=== PATIENT | male | born 1945 | race Caucasian/White ===

== ENCOUNTER 2017-02-12 17:52 | Observation (INO) | payer MEDICARE, BC ==
[2017-02-12] MEDS: Nitroglycerin 0.4 MG Tab.SL SL PRN ×3 (18:05→18:17)
[2017-02-12] MEDS ORDERED: Aspirin 81 MG Tab.Chew PO ONE (18:07)
--- NOTE | 2017-02-12 18:36 | EDM.PDOC ---
ED HPI GENERAL MEDICAL PROBLEM - General Chief Complaint: Chest Pain Stated Complaint: CP Time Seen by Provider: 02/12/17 18:20 Source of Information: Reports: Patient History Limitations: Reports: No Limitations - History of Present Illness INITIAL COMMENTS - FREE TEXT/NARRATIVE: Patient presents with complaints of anterior chest pain. 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 Around 4 pm, the pain would not subside at all. Initially states the pain was around a 6-7, on arrival around a 4. He does feel like he couldn't get enough air in. No diaphoresis, no nausea. 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 Patient is compliant with his meds for the most part, takes a daily aspirin. Does have peripheral edema every evening "above his sock", stable without any increase in that as of late. On my arrival, after 3 nitro, pain is down to a 1. Onset: Today, Sudden Duration: Hour(s):, Constant Location: Reports: Chest Quality: Reports: Pressure, Sharp Severity: Moderate Improves with: Reports: None Worsens with: Reports: Movement Associated Symptoms: Reports: Chest Pain, Shortness of Breath. Denies: Cough, Diaphoresis, Fever/Chills, Headaches, Loss of Appetite, Nausea/Vomiting, Weakness Middle Chest Pain Score (Numeric/FACES): 1 - Related Data Allergies Allergy/AdvReac Type Severity Reaction Status Date / Time No Known Allergies Allergy Verified 02/12/17 18:38 Home Meds: Home Meds Aspirin [Adult Low Dose Aspirin EC] 81 mg PO DAILY 02/20/14 [History] Furosemide [Furosemide] 20 mg PO DAILY 02/20/14 [History] Losartan [Cozaar] 50 mg PO DAILY 02/20/14 [History] Metoprolol Tartrate [Lopressor] 50 mg PO BID 02/20/14 [History] Omeprazole [Omeprazole] 20 mg PO BID 02/20/14 [History] Potassium Chloride [Klor-Con M20] 40 meq PO DAILY 02/20/14 [History] amLODIPine Besylate [Amlodipine Besylate] 10 mg PO DAILY 02/20/14 [History] atorvaSTATin Calcium [Atorvastatin Calcium] 40 mg PO DAILY 02/20/14 [History] Acetaminophen [Tylenol Extra Strength] 500 mg PO Q6HR 04/08/15 [History] Biotin 1 mg PO DAILY 04/08/15 [History] Cholecalciferol (Vitamin D3) [Vitamin D3] 5,000 unit PO DAILY 04/08/15 [History] Testosterone Cypionate [Depo-Testosterone] 200 mg IM WEEKLY 04/08/15 [History] Past Medical History Cardiovascular History: Reports: High Cholesterol, Hypertension, CT, Stents Gastrointestinal History: Reports: GERD Social & Family History - Tobacco Use Smoking Status *Q: Never Smoker ED ROS GENERAL - Review of Systems Review Of Systems: See Below Constitutional: Denies: Fever, Chills, Malaise, Weakness, Decreased Appetite HEENT: Denies: Ear Pain, Rhinitis, Sinus Problem, Throat Pain Respiratory: Reports: Shortness of Breath. Denies: Cough Cardiovascular: Reports: Chest Pain, Edema. Denies: Lightheadedness Endocrine: Denies: Fatigue GI/Abdominal: Denies: Abdominal Pain, Constipation, Diarrhea, Nausea, Vomiting : Reports: No Symptoms Musculoskeletal: Reports: No Symptoms Skin: Reports: No Symptoms Neurological: Reports: No Symptoms Psychiatric: Reports: No Symptoms ED EXAM, GENERAL - Physical Exam Exam: See Below Exam Limited By: No Limitations General Appearance: Alert, WD/WN, No Apparent Distress Ears: Normal External Exam, Normal TMs Nose: Normal Inspection, Normal Mucosa Throat/Mouth: Normal Inspection, Normal Oropharynx Head: Normocephalic Neck: Normal Inspection, Supple, Non-Tender Respiratory/Chest: No Respiratory Distress, Lungs Clear, Normal Breath Sounds Cardiovascular: Regular Rate, Rhythm, Bradycardia GI/Abdominal: Normal Bowel Sounds, Soft, Non-Tender Extremities: Pedal Edema (2+ to RLE, 1+ LLE, pitting) Neurological: Alert, Oriented Skin Exam: Warm, Dry Course - Vital Signs Last Recorded V/S: Last Vital Signs Temp 97.7 F 02/12/17 18:17 Pulse 60 02/12/17 18:45 Resp 20 02/12/17 18:20 BP 163/84 H 02/12/17 18:45 Pulse Ox 99 02/12/17 18:20 - Orders/Labs/Meds Orders: Active Orders 24 hr Category Date Time Status Chest 2V [CR] Stat Exams 02/12/17 18:06 Ordered Labs: Laboratory Tests 02/12/17 02/12/17 02/12/17 Range/Units 18:07 18:07 18:15 WBC 7.6 (5.0-10.0) 10^3/uL RBC 5.05 (4.50-6.00) 10^6/uL Hgb 14.7 (14.0-18.0) g/dL Hct 43.7 (40.0-54.0) % MCV 86.5 (82.0-94.0) fL MCH 29.1 (27.0-32.0) pg MCHC 33.6 (33.0-38.0) g/dL RDW Coeff of Jose 13.9 (11.0-15.0) % Plt Count 178 (150-400) 10^3/uL Neut % (Auto) 76.0 (35-85) % Lymph % (Auto) 14.6 (10-55) % [place] % (Auto) 8.0 (0-16) % Eos % (Auto) 1.1 (0-5) % Baso % (Auto) 0.3 (0-3) % Neut # (Auto) 5.78 (1.80-7.00) 10^3/uL Lymph # (Auto) 1.11 (1.00-4.80) 10^3/uL [place] # (Auto) 0.61 (0.00-0.80) 10^3/uL Eos # (Auto) 0.08 (0.00-0.45) 10^3/uL Baso # (Auto) 0.02 10^3/uL PT 12.0 (9.7-12.3) SEC INR 1.11 (0.92-1.18) D-Dimer, Quantitative 0.24 (0.00-0.50) Sodium 143 (136-145) mEq/L Potassium 3.1 L (3.5-5.0) mEq/L Chloride 106 (98-106) mEq/L Carbon Dioxide 28 (21-32) mmol/L BUN 13 (7-18) mg/dL Creatinine 1.2 (0.7-1.3) mg/dL Est Cr Clr Drug Dosing TNP Estimated GFR (MDRD) 60 (>=60) mL/min Glucose 118 H (75-99) mg/dL Calcium 8.8 (8.4-10.1) mg/dL Total Bilirubin 0.8 (0.0-1.0) mg/dL AST 20 (15-37) U/L ALT 42 (12-78) U/L Alkaline Phosphatase 72 (46-116) U/L Lactate Dehydrogenase 152 (100-190) U/L Creatine Kinase 167 (35-232) U/L Troponin I < 0.017 (0.00-0.06) ng/mL NT-Pro-B Natriuret Pep 194 (0-1000) pg/mL Total Protein 7.0 (6.4-8.2) g/dL Albumin 3.7 (3.4-5.0) g/dL Meds: Medications Discontinued Medications Generic Name Dose Route Start Last Admin Trade Name Freq PRN Reason Stop Dose Admin Aspirin 324 mg 02/12/17 18:07 02/12/17 18:05 Aspirin PO 02/12/17 18:08 324 mg ONETIME ONE Administration Nitroglycerin 0.4 mg 02/12/17 18:07 02/12/17 18:17 Nitrostat SL 0.4 mg Q5M PRN Administration Chest Pain - Re-Assessments/Exams Free Text/Narrative Re-Assessment/Exam: 02/12/17 19:06 EKG, enzymes normal. Departure - Departure Time of Disposition: 19:07 Disposition: Refer to Observation Condition: Undetermined Clinical Impression: Angina at rest Forms: ED Department Discharge - Problem List & Annotations (1) Angina at rest SNOMED Code(s): 05713476 Code(s): I20.8 - OTHER FORMS OF ANGINA PECTORIS Status: Acute Priority: High Current Visit: Yes - Problem List Review Problem List Initiated/Reviewed/Updated: Yes - My Orders Last 24 Hours: My Active Orders 02/12/17 18:06 Chest 2V [CR] Stat - Assessment/Plan Admission H&P: Please use this note as an admission H&P Last 24 Hours: My Active Orders 02/12/17 18:06 Chest 2V [CR] Stat Assessment:: Unstable angina Plan: Admit observation to Dr. Arguelles for chest at rest
[2017-02-12 18:39] LABS: CHLORIDE,CL 106 mEq/L (98-106); SODIUM,NA 143 mEq/L (136-145)
[2017-02-12] MEDS ORDERED: Testosterone Cypionate 200 MG/ML MDV IM SCH (19:30)
[2017-02-12] MEDS ORDERED: Acetaminophen 325 MG Tab PO PRN (19:41)
[2017-02-12] MEDS ORDERED: Temazepam 15 MG Cap PO PRN (19:41)
[2017-02-12] MEDS ORDERED: Ondansetron 4 MG/2 ML SDV IV PRN (19:41)
[2017-02-12] MEDS ORDERED: Sodium Chloride 0.9% 10 ML Syringe FLUSH PRN (19:41)
[2017-02-12] MEDS ORDERED: Acetaminophen 500 MG Tab PO SCH (20:00)
[2017-02-12] MEDS ORDERED: METOPROLOL TARTRATE 50 MG PO SCH (20:00)
[2017-02-12] MEDS ORDERED: Non-Formulary Medication 1 Each (Omeprazole [Omeprazole] 20 MG) PO SCH (20:00)
[2017-02-12] MEDS ORDERED: Enoxaparin 40 MG/0.4 ML Syringe SUBCUT SCH (20:00)
[2017-02-12] MEDS ORDERED: Enoxaparin 60 MG/0.6 ML Syringe SUBCUT SCH (22:45)
[2017-02-12] MEDS ORDERED: Enoxaparin 60 MG/0.6 ML Syringe SUBCUT ONE (22:47)
[2017-02-12] MEDS ORDERED: Enoxaparin 60 MG/0.6 ML Syringe ONE (23:10)
[2017-02-13 07:55] VITALS: BP 157/82
[2017-02-13] MEDS ORDERED: amLODIPine 10 MG Tab PO SCH (08:00)
[2017-02-13] MEDS ORDERED: Aspirin 81 MG Tab.EC PO SCH (08:00)
[2017-02-13] MEDS ORDERED: Non-Formulary Medication 1 Each (Atorvastatin Calcium [Atorvastatin Calcium] 40 MG) PO SCH (08:00)
[2017-02-13] MEDS ORDERED: Non-Formulary Medication 1 Each (Cholecalciferol (Vitamin D3) [Vitamin D3] 5,000 UNIT) PO SCH (08:00)
[2017-02-13] MEDS ORDERED: Non-Formulary Medication 1 Each (Biotin [Biotin] 1 MG) PO SCH (08:00)
[2017-02-13] MEDS ORDERED: POTASSIUM CHLORIDE 40 MEQ PO SCH (08:00)
[2017-02-13] MEDS ORDERED: Losartan 25 MG Tab PO SCH (08:00)
[2017-02-13] MEDS ORDERED: Furosemide 20 MG Tab PO SCH (08:00)
--- NOTE | 2017-02-13 09:37 | PCM.DCSUM1 ---
Discharge Summary - Hospital Course Free Text/Narrative:: Jerry is a 71 year old male who was admitted to the hospital from the ED on 02/12. He presented to the ED yesterday evening with complaints of anterior mid chest pain. Onset of pain was around 2 pm, with pain worsening around 4 pm. He reports that the pain would not subside, so he presented to the ER. Initially he reported pain rated a 6-7/10. He also reported shortness of breath. No associated diaphoresis or nausea. On arrival to the ER, pain subsided with 3 nitro. He was also given aspirin 325 mg. Patient does report a surgical history of triple bypass a number of years ago, with additional stents placed three years ago. He describes the pain experienced at time of presentation today similar to chest pain in the past. Initially his troponin I at 1800 was negative, serial troponins increased. Troponin at 2205 on 02/12 was 0.237 and subsequent troponin 02/13 at 0511 was 1.814. Throughout observation stay, patient had no reported chest pain or shortness of breath. Vital signs remained stable. Serial EKGs did show sinus bradycardia with some ST and T wave changes in the inferior leads and an incomplete right bundle branch block. At the time of discharge, vital signs were stable and patient had no chest pain or shortness of breath at rest. 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 Pain worsened and did not go away around 1600. - Patient Instructions Diet: NPO (until plan of care at [facility] is established) Activity: As Tolerated, Rest and Relax Today - Discharge Plan Home Medications: Home Meds Aspirin [Adult Low Dose Aspirin EC] 81 mg PO DAILY 02/20/14 [History] Furosemide [Furosemide] 20 mg PO DAILY 02/20/14 [History] Losartan [Cozaar] 50 mg PO DAILY 02/20/14 [History] Metoprolol Tartrate [Lopressor] 50 mg PO BID 02/20/14 [History] Omeprazole [Omeprazole] 20 mg PO BID 02/20/14 [History] Potassium Chloride [Klor-Con M20] 40 meq PO DAILY 02/20/14 [History] amLODIPine Besylate [Amlodipine Besylate] 10 mg PO DAILY 02/20/14 [History] atorvaSTATin Calcium [Atorvastatin Calcium] 40 mg PO DAILY 02/20/14 [History] Acetaminophen [Tylenol Extra Strength] 500 mg PO Q6HR 04/08/15 [History] Biotin 1 mg PO DAILY 04/08/15 [History] Cholecalciferol (Vitamin D3) [Vitamin D3] 5,000 unit PO DAILY 04/08/15 [History] Testosterone Cypionate [Depo-Testosterone] 200 mg IM Q30D 04/08/15 [History] Forms: ED Department Discharge Referrals: PCP,None [Family Provider] - - Discharge Summary/Plan Comment Discharge Summary/Plan Comment: Patient transferred to [facility]. Accepting physician is Dr. Kendrick ( hospitalist). Discussed need for angiogram and cardiology consultation. Patient transported via [facility] ambulance services. - General Info Date of Service: 02/13/17 Admission Dx/Problem (Free Text: Angina at rest Functional Status: Reports: Pain Controlled, Ambulating - Review of Systems General: Reports: No Symptoms HEENT: Reports: No Symptoms Pulmonary: Reports: No Symptoms Cardiovascular: Reports: Edema (BLE) Gastrointestinal: Reports: No Symptoms Genitourinary: Reports: No Symptoms Musculoskeletal: Reports: No Symptoms Skin: Reports: No Symptoms Neurological: Reports: No Symptoms Psychiatric: Reports: No Symptoms - Patient Data Vitals - Most Recent: Last Vital Signs Temp 97.9 F 02/13/17 07:55 Pulse 58 L 02/13/17 07:55 Resp 18 02/13/17 07:55 BP 157/82 H 02/13/17 07:55 Pulse Ox 97 02/13/17 07:55 Weight - Most Recent: 257 lb 12.8 oz Lab Results - Last 24 hrs: Laboratory Results - last 24 hr 02/12/17 02/13/17 Range/Units 22:05 05:11 Lactate Dehydrogenase 149 161 (100-190) U/L Creatine Kinase 175 228 (35-232) U/L Troponin I 0.237 H 1.814 H* (0.00-0.06) ng/mL Med Orders - Current: Current Medications Acetaminophen (Tylenol) 650 mg PO Q4H PRN PRN Reason: Pain (Mild 1-3)/fever Amlodipine Besylate (Norvasc) 10 mg PO DAILY [facility] Aspirin (Halfprin) 81 mg PO DAILY [facility] Enoxaparin Sodium (Lovenox) 40 mg SUBCUT Q24H [facility] Last Admin: 02/12/17 22:25 Dose: 40 mg Furosemide (Lasix) 20 mg PO DAILY [facility] Losartan Potassium (Cozaar) 50 mg PO DAILY [facility] Non-Formulary Medication (Atorvastatin Calcium [Atorvastatin Calcium]) 40 mg PO DAILY [facility] Non-Formulary Medication (Biotin [Biotin]) 1 mg PO DAILY [facility] Non-Formulary Medication (Cholecalciferol (Vitamin D3) [Vitamin D3]) 5,000 unit PO DAILY [facility] Non-Formulary Medication (Metoprolol Tartrate) 50 mg PO BID [facility] Last Admin: 02/12/17 21:13 Dose: Not Given Non-Formulary Medication (Omeprazole [Omeprazole]) 20 mg PO BID [facility] Last Admin: 02/12/17 21:15 Dose: Not Given Non-Formulary Medication (Potassium Chloride [Klor-Con M20]) 40 meq PO DAILY [facility] Ondansetron HCl (Zofran) 4 mg IV Q4H PRN PRN Reason: Nausea/Vomiting Sodium Chloride (Saline Flush) 10 ml FLUSH ASDIRECTED PRN PRN Reason: Keep Vein Open Temazepam (Restoril) 15 mg PO BEDTIME PRN PRN Reason: Sleep Discontinued Medications Acetaminophen (Tylenol Extra Strength) 500 mg PO Q6H [facility] Last Admin: 02/12/17 21:14 Dose: Not Given Aspirin (Aspirin) 324 mg PO ONETIME ONE Stop: 02/12/17 18:08 Last Admin: 02/12/17 18:05 Dose: 324 mg Enoxaparin Sodium (Lovenox) 60 mg SUBCUT STAT ONE Stop: 02/12/17 22:48 Last Admin: 02/12/17 23:02 Dose: 60 mg Enoxaparin Sodium (Lovenox) Confirm Administered Dose 60 mg .ROUTE .STK-MED ONE Stop: 02/12/17 23:11 Last Admin: 02/12/17 23:22 Dose: Not Given Nitroglycerin (Nitrostat) 0.4 mg SL Q5M PRN PRN Reason: Chest Pain Last Admin: 02/12/17 18:17 Dose: 0.4 mg Testosterone Cypionate (Depo-Testosterone) 200 mg IM Q30D HERNAN Last Admin: 02/12/17 19:33 Dose: Not Given - Exam General: Reports: Alert, Oriented Neck: Reports: Supple Lungs: Reports: Clear to Auscultation, Normal Respiratory Effort Cardiovascular: Reports: Regular Rhythm, Bradycardia GI/Abdominal Exam: Normal Bowel Sounds, Soft, Non-Tender, No Organomegaly, No Distention, No Abnormal Bruit, No Mass, Pelvis Stable (Male) Exam: Deferred Rectal (Males) Exam: Deferred Back Exam: Reports: Normal Inspection, Full Range of Motion Extremities: Normal Inspection, Normal Range of Motion, Non-Tender, Normal Capillary Refill, Pedal Edema Skin: Reports: Warm, Dry, Intact Neurological: Reports: No New Focal Deficit Psy/Mental Status: Reports: Alert, Normal Affect, Normal Mood *Q Meaningful Use (DIS) - VTE *Q VTE Criteria *Q: - Stroke *Q Stroke Criteria *Q: - AMI *Q AMI Criteria *Q:
--- NOTE | 2017-02-13 11:15 | DISCH ---
HISTORY: Jerry Cleaning came in with chest pain. Troponins are elevated and at home it sounds like, he has had exertional angina for about 2 months. He has had coronary bypass surgery about 7 years ago, stents 3 years ago. PHYSICAL EXAMINATION: NECK: Supple. CHEST: Clear. CARDIAC: Regular. EXTREMITIES: No edema. IMPRESSION: Pre infarction angina, possible subendocardial, transfer. ABDOULAYE/VERÓNICA /[id number]
== END 2017-02-13 10:45 ==
LOC: CC.ED 17:52 → UNDOADMOB 19:00 → CC.MS 19:00
PROVIDERS: ADMIT Physician Assistant Medical; ATTEND General Practice
DX: I20.8 Other forms of angina pectoris (principal); I10 Essential (primary) hypertension; E78.00 Pure hypercholesterolemia, unspecified; I21.3 ST elevation (STEMI) myocardial infarction of unspecified site; Z79.82 Long term (current) use of aspirin; Z79.899 Other long term (current) drug therapy
CPT/HCPCS: 36415; 71020; 80053; 82550; 83615; 83880; 84484; 85025; 85379; 85610; 93005; 99285; A9270; J1650; 93010; 96372; 99217; 99220; 99284; G0378

== ENCOUNTER → 2018-08-09 | Day surgery (SDC) | payer MEDICARE, BC ==
[~2018-08-09] MED LIST: Lactated Ringers 1,000 ML IV SCH; Ondansetron 4 MG/2 ML SDV IV ONE; Propofol 200 MG/20 ML SDV IV ONE; fentaNYL 100 MCG/2 ML SDV IV ONE
[2018-08-09 17:01] VITALS: BP 157/82
--- NOTE | 2018-08-10 09:22 | OR ---
DATE OF OPERATION: 08/09/2018 PREOPERATIVE DIAGNOSIS: RIGHT HYDROCELE. POSTOPERATIVE DIAGNOSIS: RIGHT HYDROCELE. SURGEON: Stiven Mccracken MD PROCEDURE: RIGHT HYDROCELECTOMY. ANESTHESIA: General. ESTIMATED BLOOD LOSS: Minimum. SPECIMEN: Hydrocele sac. INDICATIONS: This is a 73-year-old male, who has moderate-sized symptomatic hydrocele on the right side. DESCRIPTION OF PROCEDURE: After adequate preparation, the skin incision was made on the anterior scrotal wall and carried down to the tunica fascia. This was then peeled off in successive layers to expose the hydrocele around the testicle. The hydrocele was then dissected as free from the testicle as I could get it and then by cautery was dissected free from the testicle itself. This seemed to adequately resect the secreting margins of the hydrocele. The testicle was then placed back in the scrotum and 3 anchor stitches were used to anchor it to the scrotum on the right side to prevent torsion. The scrotum was then closed in running 3-0 Vicryl sutures around the testicle to close the space, 4-0 Vicryl was used for the skin. JIMI/VERÓNICA /[id number]
== END ==
LOC: CC.SDS 10:45
PROVIDERS: ATTEND Surgery
DX: N43.3 Hydrocele, unspecified (principal); I10 Essential (primary) hypertension; E66.9 Obesity, unspecified; Z68.38 Body mass index [BMI] 38.0-38.9, adult; M19.90 Unspecified osteoarthritis, unspecified site; N40.0 Benign prostatic hyperplasia without lower urinary tract symptoms
CPT/HCPCS: 00920; J2405; J2704; J3010; J7120

== ENCOUNTER → 2020-10-22 | Day surgery (SDC) | payer MEDICARE, BC ==
[~2020-10-22] MED LIST changes: -Lactated Ringers 1,000 ML IV SCH; +Lidocaine 2% 5 ML SDV ONE; -Ondansetron 4 MG/2 ML SDV IV ONE; -Propofol 200 MG/20 ML SDV IV ONE; +Propofol 200 MG/20 ML SDV ONE; -fentaNYL 100 MCG/2 ML SDV IV ONE; +fentaNYL 100 MCG/2 ML SDV ONE
[2020-10-22] MEDS: Lactated Ringers 1,000 ML IV SCH (08:14)
[2020-10-22 11:02] VITALS: BP 123/81; PULSE 67
--- NOTE | 2020-10-22 11:42 | OR ---
DATE OF OPERATION: 10/22/2020 PREOPERATIVE DIAGNOSIS: DYSPHAGIA AND ACCUMULATION OF PHLEGM AND SALIVA. POSTOPERATIVE DIAGNOSIS: DYSPHAGIA AND ACCUMULATION OF PHLEGM AND SALIVA. SURGEON: Stiven Mccracken MD PROCEDURE: ESOPHAGOGASTRODUODENOSCOPY WITH BIOPSY OF DISTAL ESOPHAGUS. ANESTHESIA: MAC. SPECIMEN: Distal esophageal biopsy suspicious for Mitchell's. INDICATIONS: This 75-year-old male has difficulty through the night with accumulation of phlegm and saliva in the back of his throat. He says swallowing this does not clear that. He does not have too much in the way of dysphagia for food. He does have a history of esophageal stricture with prior dilation. FINDINGS: Minimal grade 1 to 2 esophagitis. No hiatal hernia or stricture. DESCRIPTION OF PROCEDURE: After adequate preparation, a gastroscope was inserted into the esophagus. This was easily passed down to the EG junction. Examination showed some minimal columns of Mitchell's looking as epithelium in the esophagus. I did not find any evidence of a stricture or hiatal hernia. The scope was advanced into the stomach, both forward and retroflexed views were done and are normal as was the duodenal examination. He does have some superficial hyperplastic polyps in the stomach. These are of no consequence. Retroflexion of the scope in the stomach did not reveal any hiatal hernia. On withdrawal of the scope, two biopsies of suspicious areas were taken in the esophagus. The rest of the esophageal anatomy was normal. There was no evidence of obstruction or masses to explain his phlegm accumulation and dysphagia. The scope was removed and patient was taken to recovery room. JIMI/VERÓNICA /[id number]
== END ==
LOC: CC.SDS 07:39
PROVIDERS: ATTEND Surgery
DX: K22.70 Barrett's esophagus without dysplasia (principal); K22.8 Other specified diseases of esophagus; K20.90 Esophagitis, unspecified without bleeding; K31.7 Polyp of stomach and duodenum; I25.10 Atherosclerotic heart disease of native coronary artery without angina pectoris; I10 Essential (primary) hypertension; M54.5 Low back pain; E78.00 Pure hypercholesterolemia, unspecified; Z79.899 Other long term (current) drug therapy; Z79.82 Long term (current) use of aspirin; Z98.890 Other specified postprocedural states; I48.91 Unspecified atrial fibrillation; I08.3 Combined rheumatic disorders of mitral, aortic and tricuspid valves
CPT/HCPCS: 00731; 36415; 43239; 85610; 88305; 93306; 99100; J2704; J3010; J7120

== ENCOUNTER → 2021-10-26 | Day surgery (SDC) | payer MEDICARE, BC ==
[2021-10-26] MEDS: Lactated Ringers 1,000 ML IV SCH (08:30)
[2021-10-26] MEDS: Benzocaine 20% Topical Spray UD MUCMEM ONE (08:30)
[2021-10-26] MEDS: Meperidine PF 25 MG/ML SDV IV ONE (08:33)
[2021-10-26] MEDS: Midazolam 1 MG/ML 2 ML SDV IV ONE ×2 (08:34→08:45)
[2021-10-26 10:55] VITALS: BP 102/61; PULSE 58
== END ==
LOC: CC.SDS 12:19
PROVIDERS: ATTEND Family Medicine
DX: D12.3 Benign neoplasm of transverse colon (principal); K31.7 Polyp of stomach and duodenum; D50.9 Iron deficiency anemia, unspecified; K21.9 Gastro-esophageal reflux disease without esophagitis; K57.30 Diverticulosis of large intestine without perforation or abscess without bleeding; K22.70 Barrett's esophagus without dysplasia; I48.91 Unspecified atrial fibrillation; K29.70 Gastritis, unspecified, without bleeding; N40.0 Benign prostatic hyperplasia without lower urinary tract symptoms; E11.8 Type 2 diabetes mellitus with unspecified complications; I25.10 Atherosclerotic heart disease of native coronary artery without angina pectoris; I10 Essential (primary) hypertension; F32.A Depression, unspecified; E78.00 Pure hypercholesterolemia, unspecified; Z79.82 Long term (current) use of aspirin; Z79.899 Other long term (current) drug therapy; Z79.84 Long term (current) use of oral hypoglycemic drugs; Z90.49 Acquired absence of other specified parts of digestive tract; Z95.5 Presence of coronary angioplasty implant and graft; Z95.1 Presence of aortocoronary bypass graft
CPT/HCPCS: 36415; 82947; 85610; 87081; A9270-GY; J2175; J2250; J7120

== ENCOUNTER 2022-10-24 15:32 | Observation (INO) | payer MEDICARE, BC ==
[2022-10-24 15:43] LABS: BASOPHILS ABSOLUTE AUTO 0.01 10^3/uL (0.00-0.50); BASOPHILS PERCENT AUTO 0.2 % (0-1); EOSINOPHILS ABSOLUTE AUTO 0.09 10^3/uL (0.00-1.50); EOSINOPHILS PERCENT AUTO 1.4 % (0-6); HEMATOCRIT 34.5 % (42.0-52.0); HEMOGLOBIN 11.3 g/dL (14.0-18.0); LYMPHOCYTES ABSOLUTE AUTO 0.75 10^3/uL (0.60-5.00); LYMPHOCYTES PERCENT AUTO 11.7 % (24-44); MEAN CORPUSCULAR HEMOGLOBIN 28.5 pg (27.0-32.0); MEAN CORPUSCULAR HGB CONC 32.8 g/dL (32.0-36.0); MEAN CORPUSCULAR VOLUME 87.1 fL (83.0-97.0); MONOCYTES ABSOLUTE AUTO 0.61 10^3/uL (0.00-1.50); MONOCYTES PERCENT AUTO 9.5 % (0-10); NEUTROPHILS ABSOLUTE AUTO 4.94 x10^3/uL (1.80-8.00); NEUTROPHILS PERCENT AUTO 77.2 % (41-71); PLATELET COUNT,PLT 170 10^3/uL (150-400); RED BLOOD CELL COUNT 3.96 x10^6/uL (4.50-6.00); WHITE BLOOD CELL COUNT,WBC 6.4 10^3/uL (4.0-11.0)
[2022-10-24 15:54] LABS: BLOOD UREA NITROGEN,BUN 24 mg/dL (7-18); C-REACTIVE PROTEIN 5.3 mg/dL (0.2-0.8); CARBON DIOXIDE,CO2 27 mmol/L (21-32); CHLORIDE,CL 102 mEq/L (98-106); CREATININE 1.6 mg/dL (0.7-1.3); ESTIMATED GFR 44 mL/min (>=60); GLUCOSE RANDOM 133 mg/dL (75-99); POTASSIUM,K 3.3 mEq/L (3.5-5.0); SODIUM,NA 141 mEq/L (136-145)
[2022-10-24] MEDS ORDERED: HYDROmorphone 0.5 MG/0.5 ML Syringe SUBCUT ONE (17:15)
[2022-10-24] MEDS ORDERED: Acetaminophen 500 MG Tab PO PRN (18:25)
[2022-10-24] MEDS ORDERED: Ondansetron 4 MG/2 ML SDV IV PRN (18:25)
[2022-10-24] MEDS ORDERED: Sodium Chloride 0.9% 10 ML Syringe FLUSH PRN (18:25)
[2022-10-24] MEDS ORDERED: Ondansetron 4 MG Tab.DIS PO PRN (18:25)
[2022-10-24] MEDS ORDERED: Gabapentin 100 MG Cap PO PRN (18:38)
[2022-10-24] MEDS ORDERED: HYDROmorphone 0.5 MG/0.5 ML Syringe IVPUSH PRN (18:55)
[2022-10-24] MEDS: cloNIDine 0.1 MG Tab PO SCH (19:54)
[2022-10-24] MEDS ORDERED: atorvaSTATin 20 MG Tab PO SCH (20:00)
[2022-10-25] MEDS: Pantoprazole 40 MG Tab.CR PO SCH (06:16)
[2022-10-25] MEDS: cloNIDine 0.1 MG Tab PO SCH ×2 (07:38→21:29)
[2022-10-25] MEDS: Potassium Chloride 10 MEQ Tab.ER PO SCH ×2 (07:38→17:17)
[2022-10-25] MEDS: Carvedilol 12.5 MG Tab PO SCH ×2 (07:38→17:18)
[2022-10-25] MEDS: glipiZIDE 5 MG Tab.ER PO SCH (07:38)
[2022-10-25] MEDS: metFORMIN 500 MG Tab PO SCH ×2 (07:38→17:17)
[2022-10-25] MEDS: Losartan 100 MG Tab PO SCH (07:39)
[2022-10-25] MEDS: Aspirin 81 MG Tab.EC PO SCH (07:39)
[2022-10-25] MEDS: Multivitamin Tab PO SCH (07:39)
[2022-10-25] MEDS: amLODIPine 10 MG Tab PO SCH (07:39)
[2022-10-25] MEDS: Furosemide 40 MG Tab PO SCH ×3 (07:40→15:56)
[2022-10-25 08:08] LABS: INR 2.26 (0.92-1.18); PROTHROMBIN TIME 22.8 SEC (9.3-11.3)
[2022-10-25 08:09] LABS: BASOPHILS ABSOLUTE AUTO 0.02 10^3/uL (0.00-0.50); BASOPHILS PERCENT AUTO 0.4 % (0-1); EOSINOPHILS PERCENT AUTO 1.8 % (0-6); HEMATOCRIT 35.5 % (42.0-52.0); HEMOGLOBIN 11.6 g/dL (14.0-18.0); IMMATURE GRAN ABSOLUTE AUTO 0.01 10^3/uL (0.00-0.49); IMMATURE GRAN PERCENT AUTO 0.2 % (0.0-4.9); LYMPHOCYTES ABSOLUTE AUTO 0.57 10^3/uL (0.60-5.00); LYMPHOCYTES PERCENT AUTO 10.2 % (24-44); MEAN CORPUSCULAR HEMOGLOBIN 28.5 pg (27.0-32.0); MEAN CORPUSCULAR HGB CONC 32.7 g/dL (32.0-36.0); MEAN CORPUSCULAR VOLUME 87.2 fL (83.0-97.0); MONOCYTES ABSOLUTE AUTO 0.56 10^3/uL (0.00-1.50); NEUTROPHILS ABSOLUTE AUTO 4.33 x10^3/uL (1.80-8.00); NEUTROPHILS PERCENT AUTO 77.4 % (41-71); PLATELET COUNT,PLT 167 10^3/uL (150-400); RED BLOOD CELL COUNT 4.07 x10^6/uL (4.50-6.00); WHITE BLOOD CELL COUNT,WBC 5.6 10^3/uL (4.0-11.0)
[2022-10-25 08:29] LABS: ALBUMIN 3.3 g/dL (3.4-5.0); BILIRUBIN TOTAL 0.8 mg/dL (0.0-1.0); CALCIUM 8.9 mg/dL (8.4-10.1); CREATININE 1.3 mg/dL (0.7-1.3); EST CRCL DRUG DOSING (CG) 54.63 mL/min; POTASSIUM,K 3.5 mEq/L (3.5-5.0); PROTEIN TOTAL,TP 6.9 g/dL (6.4-8.2)
[2022-10-25] MEDS ORDERED: Warfarin 2.5 MG Tab PO SCH (12:00)
[2022-10-25] MEDS: Gabapentin 100 MG Cap PO SCH ×2 (13:06→21:29)
[2022-10-25] MEDS ORDERED: Cyclobenzaprine 10 MG Tab PO SCH (20:00)
[2022-10-25] MEDS ORDERED: Melatonin 3 MG Tab PO PRN (21:30)
[2022-10-26] MEDS: Pantoprazole 40 MG Tab.CR PO SCH (06:38)
[2022-10-26] MEDS: cloNIDine 0.1 MG Tab PO SCH (07:44)
[2022-10-26] MEDS: Losartan 100 MG Tab PO SCH (07:45)
[2022-10-26] MEDS: Carvedilol 12.5 MG Tab PO SCH (07:45)
[2022-10-26 07:46] VITALS: BP 140/78; PULSE 69
[2022-10-26] MEDS: metFORMIN 500 MG Tab PO SCH (07:47)
[2022-10-26] MEDS: amLODIPine 10 MG Tab PO SCH (07:47)
[2022-10-26] MEDS: glipiZIDE 5 MG Tab.ER PO SCH (07:47)
[2022-10-26] MEDS: Aspirin 81 MG Tab.EC PO SCH (07:47)
[2022-10-26] MEDS: Potassium Chloride 10 MEQ Tab.ER PO SCH (07:48)
[2022-10-26] MEDS: Gabapentin 100 MG Cap PO SCH (07:48)
[2022-10-26] MEDS: Multivitamin Tab PO SCH (07:48)
[2022-10-26] MEDS: Furosemide 40 MG Tab PO SCH (07:49)
[2022-10-26] MEDS ORDERED: Warfarin 5 MG Tab PO SCH (12:00)
== END 2022-10-26 09:03 | disposition home or self-care (01) ==
LOC: CC.FCMC 15:32 → CC.ACU 15:32 → CC.MS 18:00 → UNDOADMOB 18:00 → CC.MS 18:25
PROVIDERS: ADMIT Nurse Practitioner Family; ATTEND Nurse Practitioner Family
DX: M25.551 Pain in right hip (principal); M25.651 Stiffness of right hip, not elsewhere classified; R50.9 Fever, unspecified; E78.00 Pure hypercholesterolemia, unspecified; I10 Essential (primary) hypertension; I25.2 Old myocardial infarction; K21.9 Gastro-esophageal reflux disease without esophagitis; E66.9 Obesity, unspecified; Z95.5 Presence of coronary angioplasty implant and graft; Z79.82 Long term (current) use of aspirin; Z79.84 Long term (current) use of oral hypoglycemic drugs; Z79.01 Long term (current) use of anticoagulants; Z96.641 Presence of right artificial hip joint; Z68.34 Body mass index [BMI] 34.0-34.9, adult
CPT/HCPCS: 36415; 73700-RT; 80048; 80053; 85025; 85610; 86140; 97161-GP; A9270-GY; G0378; J1170

== ENCOUNTER 2023-10-13 08:30 | Day surgery (SDC) | payer MEDICARE, BC ==
[2023-10-13] MEDS: Lactated Ringers 1,000 ML IV SCH (09:12)
[2023-10-13] MEDS ORDERED: Ketamine 200 MG/20 ML MDV ONE (09:36)
[2023-10-13] MEDS ORDERED: Propofol 200 MG/20 ML SDV ONE (09:36)
[2023-10-13] MEDS ORDERED: Lidocaine 2% 20 ML MDV ONE (09:36)
[2023-10-13] MEDS ORDERED: fentaNYL 50 MCG/ML SDV ONE (09:36)
[2023-10-13 10:55] VITALS: BP 136/69; PULSE 60
== END 2023-10-13 10:55 | disposition home or self-care (01) ==
LOC: CC.SDS 08:30
PROVIDERS: ATTEND Family Medicine
DX: K29.50 Unspecified chronic gastritis without bleeding (principal); K29.80 Duodenitis without bleeding; K31.89 Other diseases of stomach and duodenum; K21.00 Gastro-esophageal reflux disease with esophagitis, without bleeding; K22.70 Barrett's esophagus without dysplasia; E11.9 Type 2 diabetes mellitus without complications; I10 Essential (primary) hypertension; E78.5 Hyperlipidemia, unspecified; E66.9 Obesity, unspecified; F32.A Depression, unspecified; D50.9 Iron deficiency anemia, unspecified; I25.10 Atherosclerotic heart disease of native coronary artery without angina pectoris; Z68.36 Body mass index [BMI] 36.0-36.9, adult; Z79.82 Long term (current) use of aspirin; Z79.899 Other long term (current) drug therapy; Z79.84 Long term (current) use of oral hypoglycemic drugs
CPT/HCPCS: 00731; 87081; 88305; 88342; 99100; J2704; J3010; J3490; J7120